=== PATIENT | female | born 1985 | race Caucasian/White ===

== ENCOUNTER 2018-03-30 18:40 | Emergency (ER) | payer OTHER ==
[~2018-03-30] VITALS: Ht 172.7 cm; Wt 74.8 kg
[~2018-03-30 18:40] MED LIST: PREN-16 PO
[2018-03-30] MEDS ORDERED: Armour Thyroid120 MG (18:57)
[2018-03-30] MEDS ORDERED: Cleocin HCl300 MG PO (20:33)
[2018-03-30] MEDS ORDERED: MUPIROCIN1 GM TOP (20:33)
== END 2018-03-30 20:43 | disposition home or self-care (01) ==
LOC: ER 18:40
DX: L60.0 Ingrowing nail (principal); L03.032 Cellulitis of left toe; Z88.0 Allergy status to penicillin; Z88.2 Allergy status to sulfonamides; Z88.8 Allergy status to other drugs, medicaments and biological substances; Z79.899 Other long term (current) drug therapy; F17.200 Nicotine dependence, unspecified, uncomplicated
CPT/HCPCS: 11765; 99283-25

== ENCOUNTER 2018-08-30 02:52 | Emergency (ER) | payer OTHER ==
[~2018-08-30] VITALS: Ht 170.2 cm; Wt 89.4 kg
[~2018-08-30 02:52] MED LIST changes: +Armour Thyroid120 MG; +Cleocin HCl300 MG PO; +MUPIROCIN1 GM TOP
== END 2018-08-30 05:03 | disposition home or self-care (01) ==
LOC: ER 02:52
DX: J02.9 Acute pharyngitis, unspecified (principal); F17.200 Nicotine dependence, unspecified, uncomplicated; Z88.0 Allergy status to penicillin; Z88.1 Allergy status to other antibiotic agents; Z88.2 Allergy status to sulfonamides
CPT/HCPCS: 87081; 87430; 96372; 99284-25; J1100; J1885

== ENCOUNTER → 2024-05-17 | Outpatient (CLI) | payer OTHER | LOC: LAB 16:49 → LAB SHORT 16:49 | DX: N39.0 Urinary tract infection, site not specified (principal) | CPT/HCPCS: 87086 ==